=== PATIENT | female | born 1980 | race Caucasian/White ===

== ENCOUNTER 2021-08-16 12:49 | Emergency (ER) | payer OTHER, SELFPAY ==
--- NOTE | 2021-08-16 12:57 | ED.URI ---
HPI - URI/Sore Throat General Chief Complaint: Upper Respiratory Infection Stated Complaint: cough, ear pain, congestion Time Seen by Provider: 08/16/21 12:57 Source: patient and RN notes reviewed History of Present Illness HPI Narrative: Patient is a 40-year-old female presents the urgent care with complaints of cough, left ear pain, congestion, postnasal drainage, runny nose and headache. Patient states her symptoms have been off and on for the last 3 weeks and she has had a negative PCR COVID test. Patient states that it returned last with a cough starting again last night. Patient has been taking ibuprofen, cough medication and Mera. Denies of any known fevers, nausea, vomiting. No other complaints. No acute distress noted. Patient read the plan of care. Some parts of this dictation were generated by voice recognition software and may contain typographical and/or grammatical inaccuracies. Related Data Home Medications Medication Instructions Recorded Confirmed bupropion HCl 300 mg PO DAILY 08/16/21 08/16/21 propranolol 60 mg PO DAILY 08/16/21 08/16/21 Allergies Allergy/AdvReac Type Severity Reaction Status Date / Time No Known Allergies Allergy Verified 08/16/21 13:04 Review of Systems Review of Systems: CONSTITUTIONAL: Denies fever, chills, or sweats. EYES: Denies visual changes, redness, or discharge. ENT: Reports rhinorrhea, postnasal drainage, sinus congestion, left otalgia CARDIOVASCULAR: Denies chest pain, palpitations, or edema. RESPIRATORY: Reports of cough without dyspnea GASTROINTESTINAL: Denies abdominal pain, nausea, vomiting, or diarrhea. GENITOURINARY: Denies dysuria or hematuria. SKIN: Denies rash or itching. MUSCULOSKELETAL: Denies back pain, joint pain, or myalgia. NEUROLOGIC: Reports of headache All other systems reviewed are negative, except as documented in HPI. PMFSH Comments At the time of my signature, I reviewed and agree with the nursing past medical, surgical, social, and family history. There is no relevant family history pertinent to the patient complaint. Exam Narrative: GENERAL: This is a well-nourished, well-developed patient. Appears slightly fatigued HEAD: normocephalic, atraumatic. EYES: PERRL. Sclera clear/white. Vision is grossly intact. EARS: External ears normal, auditory canals clear and without drainage, moderate effusion to the right without otitis. TMs normal without perforation. Hearing grossly intact. NOSE: External nose normal with no obvious nasal discharge, nares without redness, clear to yellow rhinorrhea. THROAT: Mucous membranes moist, posterior pharynx clear. Moderate postnasal drainage NECK: Neck supple, non-tender without lymphadenopathy CARDIOVASCULAR: Regular rate and rhythm without murmurs, gallops, or rubs. RESPIRATORY: Mild crackles to left lower lobe, cleared with cough. No wheezing SKIN: warm, intact with no suspicious lesions or rash, good texture and turgor. NEURO: awake, alert, and oriented to person, place and time. There were no obvious focal neurologic abnormalities. EXTREMITIES: No clubbing, cyanosis, or edema Course Course Level of Care: Express Care Visit Vital Signs Vital signs: Vital Signs Temperature 97.9 F 08/16/21 12:59 Pulse Rate 107 H 08/16/21 12:59 Respiratory Rate 12 08/16/21 12:59 Blood Pressure 146/80 H 08/16/21 12:59 Pulse Oximetry 100 08/16/21 12:59 Temperature 97.9 F 08/16/21 12:59 Pulse Rate 107 H 08/16/21 12:59 Respiratory Rate 12 08/16/21 12:59 Blood Pressure 146/80 H 08/16/21 12:59 Pulse Oximetry 100 08/16/21 12:59 Reviewed-patient is informed that they may have pre-hypertension or hypertension based on a blood pressure reading in the department. I recommend the patient call the primary care provider listed on their discharge instructions or a physician of their choice this week to arrange follow-up for further evaluation of possible pre-hypertension or hypertension.
[2021-08-16 12:59] VITALS: BP 146/80; PULSE 107; RESP 12; TEMP 36.6; O2SAT 100
== END 2021-08-16 13:25 | disposition home or self-care (01) ==
PROVIDERS: Emergency Provider Nurse Practitioner Family; PCP Nurse Practitioner Adult Health
DX: J40 Bronchitis, not specified as acute or chronic (principal)
CPT/HCPCS: 99213; G0463